=== PATIENT | male | born 1950 | race Caucasian/White ===

== ENCOUNTER → 2019-02-10 | Outpatient (CLI) | payer MEDICARE ==
--- NOTE | 2019-02-11 08:08 | CT ---
EXAMINATION TYPE: CT chest w con DATE OF EXAM: 02/10/2019 COMPARISON: Outside study from 10/17/2018 HISTORY: Adnormal findings in lung field CT DLP: 159 mGycm Automated exposure control for dose reduction was used. CONTRAST: CT scan of the chest is performed with IV Contrast, patient injected with 100 mL of Isovue 300. FINDINGS: LUNGS: There is severe upper lobe emphysematous change noted. There is cavitary nodule right upper lo be with pleural extension measuring 1.7 x 1.5 cm versus 1.5 x 1.3 cm previously. Malignancy is not ex cluded. Pleural-based mass density left upper lobe posteriorly measures 2.7 x 1.6 cm and demonstrates internal calcifications and likely reflects an area of parenchymal scarring. Again malignancy is not excluded. Groundglass nodule right lower lobe image 29 of 80 measuring 7 mm. Moderate mid and lower lung zone emphysematous change noted. No evidence for focal consolidation. No pleural effusion or vol ume loss. MEDIASTINUM: There are no greater than 1 cm hilar or mediastinal lymph nodes. No pericardial effusi on is seen. Thoracic aorta is of normal caliber. The heart is not enlarged. UPPER ABDOMEN: No significant abnormality appreciated. OTHER: No additional significant abnormality is seen. IMPRESSION: 1. Cavitary nodule right upper lobe with pleural extension demonstrate slight interval enlargement. M alignancy is not excluded. 2. Pleural-based mass density with internal calcifications left upper lobe posteriorly is similar in size and appearance. This may reflect an area of parenchymal scar. Again malignancy is not excluded. Continued follow-up is advised in 3-4 months. Correlate with PET/CT and tissue diagnosis if felt clin ically indicated.
== END | disposition home or self-care (01) ==
LOC: RADCTMAIN 16:23
PROVIDERS: ATTEND Thoracic Surgery (Cardiothoracic Vascular Surgery)
DX: R91.1 Solitary pulmonary nodule (principal); R91.8 Other nonspecific abnormal finding of lung field
CPT/HCPCS: 82565; 84520; 71260; 36415; Q9967

== ENCOUNTER → 2019-08-20 | Outpatient (CLI) | payer MEDICARE ==
--- NOTE | 2019-08-21 06:43 | CT ---
EXAMINATION TYPE: CT chest w con DATE OF EXAM: 08/20/2019 COMPARISON: Chest CT February 10, [address] October 17, 2018 HISTORY: Follow up for pulmonary nodule. CT DLP: 446 mGycm. Automated Exposure Control for Dose Reduction was Utilized. TECHNIQUE: CT scan of the thorax is performed following with IV Contrast, patient injected with 100m l mL of Isovue 300. FINDINGS: LUNGS: There is persistent moderate to severe underlying emphysematous change most prominent in the u pper lungs. There is persistent cavitary right upper lobe lesion with linear extension scarring. This area measures roughly 2.1 x 1.1 cm without significant change from prior studies. There is additiona l posterior subpleural base mass like consolidation with calcification in the left lung apex measurin g 2.5 x 1.9 cm current study image 8 not significantly changed in size or appearance from last 2 CTs. Focal subcentimeter scarring right upper lobe posterior-inferior aspect axial image 28 is unchanged from last 2 studies. No new nodules or masses. No pleural effusion or pneumothorax bilaterally. MEDIASTINUM: There are no new greater than 1 cm hilar or mediastinal lymph nodes. No cardiomegaly o r pericardial effusion is seen. OTHER: Slight scoliotic curvature to the spine redemonstrated. IMPRESSION: Overall stable findings, moderate to advanced emphysematous change with stable upper lung ametabolic areas, right upper lung cavitary area in the left upper lung partially calcified masslike consolidation both favor postinflammatory and/or benign in etiology.
== END | disposition home or self-care (01) ==
LOC: RADCTMAIN 16:38
PROVIDERS: ATTEND Thoracic Surgery (Cardiothoracic Vascular Surgery)
DX: J43.9 Emphysema, unspecified (principal); R91.8 Other nonspecific abnormal finding of lung field
CPT/HCPCS: 82565; 84520; 71260; 36415; Q9967